=== PATIENT | female | born 1995 | race Caucasian/White ===

== ENCOUNTER 2018-09-15 21:26 | Outpatient (CLI) | payer OTHER | END 2018-09-15 22:32 | disposition home or self-care (01) | LOC: OBT 21:26 → L-D 21:26 → OBT 22:32 | DX: O36.8130 Decreased fetal movements, third trimester, not applicable or unspecified (principal); Z3A.31 31 weeks gestation of pregnancy ==

== ENCOUNTER 2018-11-06 13:30 | Inpatient (IN) | payer OTHER ==
[2018-11-06 15:42] LABS: RUPTURE FETAL MEMBRANES NEGATIVE (NEGATIVE)
[2018-11-06] MEDS: LACTATED RINGER'S 1,000 ML IV (17:59)
== END 2018-11-06 21:40 | disposition left against medical advice (07) | DRG 998 ==
LOC: OBT 13:30 → L-D 13:31 → OBT 16:35 → L-D 16:35 → PP1 20:28
PROVIDERS: Obstetrics & Gynecology
DX: O76 Abnormality in fetal heart rate and rhythm complicating labor and delivery (principal)
CPT/HCPCS: 76818; 84112

== ENCOUNTER 2018-11-17 00:40 | Inpatient (IN) | payer OTHER ==
[2018-11-17] MEDS ORDERED: CARBOPROST 250 MCG INJ IM (02:30)
[2018-11-17] MEDS ORDERED: OXYTOCIN 30 UNITS/LR 500 ML IV (02:30)
[2018-11-17] MEDS ORDERED: METHYLERGONOVINE 0.2 MG INJ IM (02:30)
[2018-11-17] MEDS: LACTATED RINGER'S 1,000 ML IV ×3 (03:50→15:34)
[2018-11-17 04:46] LABS: ADD MAN DIFF? NO
[2018-11-17 04:48] LABS: BASOPHILS % 0.1 % (0.0-2.0); EOSINOPHILS % 0.5 % (0.0-7.0); HEMATOCRIT 37.9 % (37.0-47.0); HEMOGLOBIN 12.6 g/dl (12.0-16.0); LYMPHOCYTES # 2.2 10^3/ul (0.8-2.9); LYMPHOCYTES % 27.1 % (15.0-51.0); MEAN CORPUSCULAR HEMOGLOBIN 29.8 pg (29.0-33.0); MEAN CORPUSCULAR HGB CONC 33.2 g/dl (32.0-37.0); MEAN CORPUSCULAR VOLUME 89.6 fl (82.0-101.0); MEAN PLATELET VOLUME 12.7 fl (7.4-10.4); MONOCYTE # 0.5 10^3/ul (0.3-0.9); MONOCYTES % 6.4 % (0.0-11.0); NEUTROPHIL # 5.3 10^3/ul (1.6-7.5); NEUTROPHILS % 65.4 % (39.0-77.0); PLATELET COUNT 186 10^3/UL (140-415); RED BLOOD COUNT 4.23 10^6/ul (4.20-5.40); RED CELL DISTRIBUTION WIDTH 13.2 % (11.5-14.5)
[2018-11-17 04:48] LABS: WHITE BLOOD COUNT 8.1 10^3/ul (4.8-10.8)
[2018-11-17] MEDS: MISOPROSTOL 50 MCG CAPSULE PO ×4 (04:48→20:34)
[2018-11-17 05:08] LABS: INR 0.84; PROTIME 11.6 Sec (11.9-14.9); PT RATIO 0.9
[2018-11-17 05:09] LABS: PARTIAL THROMBOPLASTIN TIME 26.6 Sec (23.0-35.0)
[2018-11-17 05:44] LABS: HEPATITIS B SURFACE ANTIGEN NEGATIVE (NEGATIVE)
[2018-11-17] MEDS: ACETAMINOPHEN 325 MG TAB PO (06:09)
[2018-11-17 14:42] LABS: RAPID PLASMA REAGIN NONREACTIVE (NR)
[2018-11-18] MEDS: LACTATED RINGER'S 1,000 ML IV ×4 (00:17→20:15)
[2018-11-18] MEDS: MISOPROSTOL 50 MCG CAPSULE PO ×2 (00:47→05:22)
[2018-11-18] MEDS: BUTORPHANOL 2 MG INJ IV (03:48)
[2018-11-18] MEDS: OXYTOCIN 30 UNITS/LR 500 ML IV (13:57)
[2018-11-18] MEDS ORDERED: FENTAnyl 2MCG/ML-ROPIV 0.2% 100 ML (16:28)
[2018-11-18] MEDS ORDERED: DIPHENHYDRAMINE 50 MG INJ IV (17:00)
[2018-11-18] MEDS ORDERED: HYDROmorphONE 0.5 MG/0.5 ML SYG IV ×2 (17:00)
[2018-11-18] MEDS ORDERED: KETOROLAC 30 MG INJ IV (17:00)
[2018-11-18] MEDS ORDERED: NALOXONE (0.4 MG/ML) INJ IV (17:00)
[2018-11-19] MEDS: LACTATED RINGER'S 1,000 ML IV ×4 (01:17→19:48)
[2018-11-19] MEDS: FENTAnyl 2MCG/ML-ROPIV 0.2% 100 ML BAG EPI ×3 (01:33→20:38)
[2018-11-19] MEDS: DEXTROSE 5%-LR 1,000 ML IV (07:41)
[2018-11-19] MEDS: ONDANSETRON 4 MG INJ IV (07:41)
[2018-11-20] MEDS: FENTAnyl 2MCG/ML-ROPIV 0.2% 100 ML BAG EPI ×4 (03:53→22:08)
[2018-11-20] MEDS: LACTATED RINGER'S 1,000 ML IV ×4 (05:05→21:12)
[2018-11-20] MEDS: DEXTROSE 5%-LR 1,000 ML IV ×16 (10:46→23:10)
[2018-11-20] MEDS: OXYTOCIN 30 UNITS/LR 500 ML IV (11:09)
[2018-11-20] MEDS ORDERED: NALOXONE (0.4 MG/ML) INJ IV (15:00)
[2018-11-20] MEDS ORDERED: ONDANSETRON 4 MG INJ IV (15:00)
[2018-11-20] MEDS ORDERED: DIPHENHYDRAMINE 50 MG INJ IV (15:00)
[2018-11-20] MEDS: AMPICILLIN 2 GM/NS (PMX) 100 ML IV (17:52)
[2018-11-20] MEDS: ACETAMINOPHEN 325 MG TAB PO (19:42)
[2018-11-20] MEDS: GENTAMICIN 120 MG/NS (PMX) 100 ML IVPB (20:26)
[2018-11-20] MEDS: AMPICILLIN 1 GM/NS (PMX) 50 ML IV (21:52)
[2018-11-21] MEDS: AMPICILLIN 1 GM/NS (PMX) 50 ML IV ×4 (01:44→18:16)
[2018-11-21] MEDS: ACETAMINOPHEN 325 MG TAB PO (02:36)
[2018-11-21] MEDS: FENTAnyl 2MCG/ML-ROPIV 0.2% 100 ML BAG EPI (02:42)
[2018-11-21] MEDS: GENTAMICIN 80 MG/NS (PMX) 50 ML IVPB ×3 (03:43→21:43)
[2018-11-21] MEDS: OXYTOCIN 30 UNITS/LR 500 ML IV ×2 (05:00→05:22)
[2018-11-21] MEDS: MISOPROSTOL 200 MCG TAB PR (05:04)
[2018-11-21] MEDS: LIDOCAINE 1% (MPF) 30 ML INJ INJ (05:11)
[2018-11-21] MEDS: DEXTROSE 5%-LR 1,000 ML IV ×3 (06:00→16:51)
[2018-11-21] MEDS: IBUPROFEN 600 MG TAB PO ×4 (06:26→23:24)
[2018-11-21] MEDS ORDERED: METHYLERGONOVINE 0.2 MG INJ IM (09:00)
[2018-11-21] MEDS ORDERED: ZOLPIDEM 5 MG TAB PO (09:00)
[2018-11-21] MEDS ORDERED: MISOPROSTOL 200 MCG TAB PR (09:00)
[2018-11-21] MEDS ORDERED: ACETAMINOPHEN 325 MG TAB PO (09:00)
[2018-11-21] MEDS ORDERED: ONDANSETRON 4 MG INJ IV (09:00)
[2018-11-21] MEDS ORDERED: MAGNESIUM HYDROXIDE 30ML CUP PO (09:00)
[2018-11-21] MEDS ORDERED: DIPHENHYDRAMINE 50 MG INJ IV (09:00)
[2018-11-21] MEDS ORDERED: CARBOPROST 250 MCG INJ IM (09:00)
[2018-11-21] MEDS ORDERED: OXYTOCIN 30 UNITS/LR 500 ML IV (09:00)
[2018-11-21] MEDS: OXYCODONE/ASPIRIN (4.88/325) TAB PO (09:37)
[2018-11-21] MEDS: BENZOCAINE 20% 56 ML SPRAY TOP (09:38)
[2018-11-21] MEDS: DIBUCAINE 1% 30 GM OINT TOP (09:38)
[2018-11-21] MEDS: LANOLIN HPA 1 PKT TOP (09:38)
[2018-11-21] MEDS: WITCH HAZEL/GLYCERIN PAD PR ×2 (09:38→23:24)
[2018-11-21] MEDS: LACTATED RINGER'S 1,000 ML IV* ×2 (09:40→16:51)
[2018-11-22] MEDS: LACTATED RINGER'S 1,000 ML IV* (00:51)
[2018-11-22] MEDS: DEXTROSE 5%-LR 1,000 ML IV (00:51)
[2018-11-22] MEDS: IBUPROFEN 600 MG TAB PO ×3 (06:23→18:07)
[2018-11-22 08:42] LABS: ADD MAN DIFF? NO; BASOPHILS % 0.3 % (0.0-2.0); EOSINOPHILS % 0.5 % (0.0-7.0); HEMATOCRIT 28.7 % (37.0-47.0); HEMOGLOBIN 9.4 g/dl (12.0-16.0); LYMPHOCYTES # 1.9 10^3/ul (0.8-2.9); MEAN CORPUSCULAR HEMOGLOBIN 29.7 pg (29.0-33.0); MEAN CORPUSCULAR HGB CONC 32.8 g/dl (32.0-37.0); MEAN CORPUSCULAR VOLUME 90.5 fl (82.0-101.0); MEAN PLATELET VOLUME 11.4 fl (7.4-10.4); MONOCYTE # 0.5 10^3/ul (0.3-0.9); MONOCYTES % 6.1 % (0.0-11.0); NEUTROPHIL # 5.2 10^3/ul (1.6-7.5); NEUTROPHILS % 67.6 % (39.0-77.0); RED BLOOD COUNT 3.17 10^6/ul (4.20-5.40); RED CELL DISTRIBUTION WIDTH 13.9 % (11.5-14.5)
[2018-11-22 08:42] LABS: WHITE BLOOD COUNT 7.7 10^3/ul (4.8-10.8)
[2018-11-22 08:43] LABS: PLATELET COUNT 137 10^3/UL (140-415)
[2018-11-22] MEDS: WITCH HAZEL/GLYCERIN PAD PR ×2 (16:32→22:01)
[2018-11-22] MEDS: LANOLIN HPA 1 PKT TOP ×2 (18:07→23:01)
[2018-11-22] MEDS: BENZOCAINE 20% 56 ML SPRAY TOP (22:01)
[2018-11-23] MEDS: IBUPROFEN 600 MG TAB PO ×2 (00:24→06:16)
[2018-11-23] MEDS: DIPHTH/TET/ACEL PERTUSS (ADULT) 0.5 ML VIAL IM* (07:40)
[2018-11-23] MEDS: SENNA/DOCUSATE NA (8.6MG/50MG) TAB PO (09:56)
[2018-11-23] MEDS: MEASLES,MUMPS,RUBELLA VACCINE INJ SC* (09:57)
== END 2018-11-23 13:06 | disposition home or self-care (01) | DRG 807 ==
LOC: OBT 00:40 → PP1 11-21 08:17 → L-D 00:41 → OBT 02:26 → L-D 02:26
PROVIDERS: Obstetrics & Gynecology
PROC: 10E0XZZ Delivery of Products of Conception, External Approach (ICD-10-PCS; principal; 2018-11-21)
PROC: 0W8NXZZ Division of Female Perineum, External Approach (ICD-10-PCS; 2018-11-21)
DX: O48.0 Post-term pregnancy (principal); O99.214 Obesity complicating childbirth; Z37.0 Single live birth; Z3A.40 40 weeks gestation of pregnancy
CPT/HCPCS: 76815; 76818; 85025; 85610; 85730; 86592; 86850; 86900; 86901; 87340